=== PATIENT | male | born 1940 | race Caucasian/White ===

== ENCOUNTER 2016-12-05 12:40 | Emergency (ER) | payer MEDICARE, OTHER | END 2016-12-05 14:15 | disposition home or self-care (01) | LOC: ER1 12:40 | DX: S70.02XA Contusion of left hip, initial encounter (principal); I10 Essential (primary) hypertension; M19.90 Unspecified osteoarthritis, unspecified site; F17.220 Nicotine dependence, chewing tobacco, uncomplicated; Z90.49 Acquired absence of other specified parts of digestive tract; W01.0XXA Fall on same level from slipping, tripping and stumbling without subsequent striking against object, initial encounter | CPT/HCPCS: 73502; 99283 ==